=== PATIENT | male | born 1975 | race Caucasian/White ===

== ENCOUNTER 2023-11-29 14:15 | Outpatient (CLI) | payer BC, SELFPAY | END 2023-11-29 14:16 | disposition home or self-care (01) | PROVIDERS: PCP Family Medicine; Visit Provider Family Medicine | DX: Z00.00 Encounter for general adult medical examination without abnormal findings (principal); I10 Essential (primary) hypertension; Z13.6 Encounter for screening for cardiovascular disorders; Z13.9 Encounter for screening, unspecified | CPT/HCPCS: 80048; 80061; 84460 ==

== ENCOUNTER 2023-12-13 07:52 | Outpatient (CLI) | payer BC, SELFPAY | END 2023-12-13 07:53 | disposition home or self-care (01) | PROVIDERS: PCP Family Medicine; Visit Provider Family Medicine | DX: R01.1 Cardiac murmur, unspecified (principal); I35.1 Nonrheumatic aortic (valve) insufficiency | CPT/HCPCS: 93306 ==

== ENCOUNTER 2024-02-01 14:34 | Outpatient (CLI) | payer BC, SELFPAY | END 2024-02-01 14:35 | disposition home or self-care (01) | LOC: AMB 02-06 06:20 | PROVIDERS: PCP Family Medicine; Visit Provider Family Medicine | DX: E86.0 Dehydration (principal); E11.649 Type 2 diabetes mellitus with hypoglycemia without coma | CPT/HCPCS: A0998 ==

== ENCOUNTER 2024-03-09 16:08 | Outpatient (CLI) | payer BC, SELFPAY | END 2024-03-09 16:09 | disposition home or self-care (01) | PROVIDERS: PCP Family Medicine; Visit Provider Family Medicine | DX: Z01.818 Encounter for other preprocedural examination (principal); E78.2 Mixed hyperlipidemia; I10 Essential (primary) hypertension | CPT/HCPCS: 80048; 80061; 84460; 85025 ==

== ENCOUNTER 2024-04-14 11:22 | Outpatient (CLI) | payer BC, SELFPAY | END 2024-04-14 11:23 | disposition home or self-care (01) | PROVIDERS: PCP Family Medicine; Visit Provider Family Medicine | DX: E78.2 Mixed hyperlipidemia (principal); I10 Essential (primary) hypertension; I25.10 Atherosclerotic heart disease of native coronary artery without angina pectoris; I35.0 Nonrheumatic aortic (valve) stenosis; Z95.2 Presence of prosthetic heart valve | CPT/HCPCS: 80048; 85025 ==

== ENCOUNTER 2024-05-04 09:49 | Outpatient (CLI) | payer BC, SELFPAY | END 2024-05-04 09:50 | disposition home or self-care (01) | LOC: FBOREF 09:50 | PROVIDERS: PCP Family Medicine; Visit Provider Family Medicine | DX: Z95.2 Presence of prosthetic heart valve (principal); Z79.01 Long term (current) use of anticoagulants | CPT/HCPCS: 85610 ==

== ENCOUNTER 2024-10-08 09:39 | Outpatient (CLI) | payer BC, SELFPAY | END 2024-10-08 09:40 | disposition home or self-care (01) | PROVIDERS: PCP Family Medicine; Referring Provider Family Medicine; Visit Provider Family Medicine | DX: R31.0 Gross hematuria (principal) | CPT/HCPCS: 87086 ==

== ENCOUNTER 2024-10-15 07:30 | Outpatient (CLI) | payer BC, SELFPAY ==
--- NOTE | 2024-10-15 08:00 | CRLHL7_ITS ---
For Patients: As a result of the Century Cures Act, medical imaging exams and procedure reports are released immediately into your electronic medical record. You may view this report before your referring provider. If you have questions, please contact your health care provider. Indication: Gross hematuria Technique: Routine noncontrast CT abdomen and pelvis Please note that all CT scans at this facility use dose modulation, iterative reconstruction, and/or weight-based dosing when appropriate to reduce radiation dose to as low as reasonably achievable. Comparison: None Findings: Lung bases are clear. No pleural effusion. Noncontrast enhanced liver is normal. Gallbladder is incompletely distended. No calcified gallstone or biliary obstruction. Normal pancreas. The spleen is normal. Adrenal glands unremarkable. Simple cyst left kidney measures 2.9 cm. Normal right kidney. Adrenal glands unremarkable. No renal or ureteral stone. No hydronephrosis or hydroureter. The bladder is incompletely distended. The bladder wall appears somewhat trabeculated and measures up to 7 millimeters. No bowel obstruction. Appendix normal. Bilateral fat filled inguinal hernias are present, left greater than right, measuring up to 2.5 cm. No bladder stone. Vascular calcifications. No aneurysm. Degenerative changes right hip. Impression: Bladder is incompletely distended with thickened and trabeculated bladder wall suspected measuring up to 7 millimeters. This could suggest cystitis. Urology referral recommended for consideration of cystoscopy. No renal or ureteral stone. No hydronephrosis. Please note that all CT scans at this facility use dose modulation, iterative reconstruction, and/or weight-based dosing when appropriate to reduce radiation dose to as low as reasonably achievable. Dictated by Nilesh Mann MD @ 10/15/2024 10:44:03 AM (Electronically Signed)
== END 2024-10-15 07:31 | disposition home or self-care (01) ==
LOC: CT 07:30
PROVIDERS: PCP Family Medicine; Visit Provider Family Medicine
DX: R31.0 Gross hematuria (principal)
CPT/HCPCS: 74176

== ENCOUNTER 2025-10-01 12:30 | Outpatient (CLI) | payer BC, SELFPAY | END 2025-10-01 12:31 | disposition home or self-care (01) | PROVIDERS: PCP Family Medicine; Visit Provider Family Medicine | DX: I10 Essential (primary) hypertension (principal); E78.2 Mixed hyperlipidemia; Z13.9 Encounter for screening, unspecified | CPT/HCPCS: 80048; 80061; 84460; 85025; G0103 ==